=== PATIENT | male | born 1980 | race Caucasian/White ===

== ENCOUNTER 2021-04-20 00:57 | Emergency (ER) | payer SELFPAY ==
[2021-04-20 02:19] LABS: BASO # 0.1 K/mm3 (0.0-0.2); BASO % 0.6 % (0.0-2.0); EOS # 0.2 K/mm3 (0.0-0.7); EOS % 2.5 % (0.0-4.0); GRAN # 5.3 K/mm3 (1.4-6.5); GRAN % 68.7 % (42.2-75.2); HEMATOCRIT 45.3 % (42.0-52.0); HEMOGLOBIN 15.4 g/dl (13.5-18.0); LYMPH # 1.8 K/mm3 (1.2-3.4); MEAN CELL VOLUME 91 fl (80.0-100.0); MEAN CORPUSCULAR HEMOGLOBIN 31 pg (27-31); MEAN CORPUSCULAR HGB CONC 34 g/dl (33.0-37.0); MEAN PLATELET VOLUME 9.4 fl (7.4-10.4); MONO # 0.4 K/mm3 (0.1-0.6); MONO % 4.8 % (1.7-9.3); PLATELET COUNT 289 K/mm3 (130-400); RED BLOOD COUNT 4.99 M/mm3 (4.20-5.60); REDCELL DISTRIBUTION WIDTH-CV 13.3 % (11.5-14.5)
[2021-04-20 02:37] LABS: ALANINE AMINOTRANSFERASE 34 U/L (0-55); ALBUMIN 4.2 gm/dL (3.5-5.0); ALCOHOL(ethanol),MEDICAL 240 mg/dL (0-10); ALKALINE PHOSPHATASE 54 U/L (40-150); ANION GAP 17 mmol/L (7-16); AST,SGOT 41 U/L (5-34); BILIRUBIN,TOTAL 0.3 mg/dL (0.2-1.2); BLOOD UREA NITROGEN 11 mg/dL (9-21); CARBON DIOXIDE 17 mmol/L (22-29); CHLORIDE 111 mmol/L (98-107); CREATININE, serum 1.12 mg/dL (0.72-1.25); GLUCOSE 104 mg/dL (70-99); POTASSIUM 3.9 mmol/L (3.5-4.5); SODIUM 145 mmol/L (136-145); TOTAL PROTEIN 7.3 gm/dL (6.2-8.1)
[2021-04-20 02:48] LABS: ACETAMINOPHEN < 1.0 ug/mL (10-30); SALICYLATE < 5.0 mg/dL (15.0-30.0)
[2021-04-20 02:52] LABS: TSH w REFLEX 2.266 uIU/mL (0.350-4.940)
[2021-04-20 09:11] LABS: COLLECTION METHOD CLEAN CATCH
[2021-04-20 09:17] LABS: MUCOUS Present (NOT PRESENT); PH 5 (5-8); SQUAMOUS EPITHELIAL None Seen /hpf (0-10); URINE APPEARANCE Clear (CLEAR/HAZY); URINE BACTERIA None Seen /hpf (NONE SEEN); URINE BILIRUBIN Negative (NEGATIVE); URINE BLOOD 2+ (NEGATIVE); URINE COLOR Yellow (YELLOW); URINE GLUCOSE Negative (NEGATIVE); URINE KETONE Trace (NEGATIVE); URINE LEUKOCYTE ESTERASE Negative (NEGATIVE); URINE NITRATE Negative (NEGATIVE); URINE PROTEIN(semi-quant) Negative (NEGATIVE); URINE RBC None Seen /hpf (0-2); URINE UROBILINOGEN Negative (NEGATIVE)
[2021-04-20 09:27] LABS: TRICYCLIC ANTIDEPRESS URINE NEGATIVE
[2021-04-20 11:29] VITALS: BP 143/62; PULSE 99
== END 2021-04-20 11:29 | disposition home or self-care (01) ==
LOC: COL.ER 00:57
PROVIDERS: Emergency Medicine
DX: F10.129 Alcohol abuse with intoxication, unspecified (principal); R41.82 Altered mental status, unspecified; R03.0 Elevated blood-pressure reading, without diagnosis of hypertension; F17.290 Nicotine dependence, other tobacco product, uncomplicated; Y90.8 Blood alcohol level of 240 mg/100 ml or more
CPT/HCPCS: J1630; J2060

== ENCOUNTER 2021-11-27 14:04 | Emergency (ER) | payer SELFPAY ==
[~2021-11-27] VITALS: Ht 175.3 cm; Wt 59.1 kg
[2021-11-27 14:16] VITALS: BP 145/80; TEMP 98.7
[2021-11-27] MEDS ORDERED: PERCOCET 325 MG1 TA2 PO (15:15)
[2021-11-27 15:33] VITALS: PULSE 82
== END 2021-11-27 15:35 | disposition home or self-care (01) ==
LOC: COL.ER 14:04
DX: S42.002A Fracture of unspecified part of left clavicle, initial encounter for closed fracture (principal); F17.200 Nicotine dependence, unspecified, uncomplicated; Z28.310 Unvaccinated for COVID-19; V18.9XXA Unspecified pedal cyclist injured in noncollision transport accident in traffic accident, initial encounter; Y92.410 Unspecified street and highway as the place of occurrence of the external cause